=== PATIENT | female | born 1985 | race Caucasian/White ===

== ENCOUNTER 2019-04-24 10:43 | Emergency (ER) | payer SELFPAY ==
[~2019-04-24] VITALS: Ht 172.7 cm; Wt 79.4 kg
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
--- NOTE | 2019-04-24 11:49 | RAD ---
KNEE BILAT 3V History: Bilateral knee pain. History of fall. Technique: 3 views bilateral knees. Comparison: None. Findings: Normal alignment. No fracture. Moderate left knee joint effusion. No significant right knee joint effusion. There is the bilateral medial compartment degenerative changes, left greater than right. Impression: 1. No acute osseous abnormality. 2. Moderate left knee joint effusion. Electronically signed by: Joe Barlow DO (04/24/2019 11:46 AM) [facility]
[2019-04-24] MEDS ORDERED: IBUP800T19 PO (12:00)
[2019-04-24 12:10] VITALS: BP 121/76
== END 2019-04-24 12:14 | disposition home or self-care (01) ==
LOC: ER 10:43
DX: S80.02XA Contusion of left knee, initial encounter (principal); S80.01XA Contusion of right knee, initial encounter; M25.462 Effusion, left knee; M25.461 Effusion, right knee; J45.909 Unspecified asthma, uncomplicated; W51.XXXA Accidental striking against or bumped into by another person, initial encounter; Y93.89 Activity, other specified; Y92.89 Other specified places as the place of occurrence of the external cause; Y99.8 Other external cause status
CPT/HCPCS: 73562; 99284

== ENCOUNTER 2020-05-08 00:39 | Emergency (ER) | payer OTHER ==
[~2020-05-08] VITALS: Ht 172.7 cm; Wt 84.0 kg
[~2020-05-08 00:39] MED LIST: IBUP800T19 PO
--- NOTE | 2020-05-08 00:43 | PHYS DOC ---
Past History Past Medical History: Anxiety, Asthma, Bipolar, UTI, Other Past Surgical History: Other Alcohol Use: Occasionally Drug Use: Marijuana General Adult HPI: HPI: ". I am pretty sure .. I got a urinary tract infection.. I feel like when I had one before..."..." it hurts to pee and my urine is cloudy" Patient is a 35 year old female who presents with above hx and complaints of dysuria past couple days. Patient denies any history immunosuppression. No recent travel. No specific ill contacts. No worries about having an STD. Patient does not follow-up with primary care. Review of Systems: Review of Systems: Constitutional: Denies fever or chills Eyes: Denies change in visual acuity HENT: Denies nasal congestion or sore throat Respiratory: Denies cough or shortness of breath Cardiovascular: Denies chest pain or edema GI: Denies abdominal pain, nausea, vomiting, bloody stools or diarrhea : Complains of dysuria Musculoskeletal: Denies back pain or joint pain Integument: Denies rash Neurologic: Denies headache, focal weakness or sensory changes Endocrine: Denies polyuria or polydipsia Lymphatic: Denies swollen glands Psychiatric: Denies depression or anxiety Heart Score: Risk Factors: Risk Factors: DM, Current or recent (<one month) smoker, HTN, HLP, family history of CAD, obesity. Risk Scores: Score 0 - 3: 2.5% MACE over next 6 weeks - Discharge Home Score 4 - 6: 20.3% MACE over next 6 weeks - Admit for Clinical Observation Score 7 - 10: 72.7% MACE over next 6 weeks - Early Invasive Strategies Family History: Family History: Noncontributory Current Medications: Current Meds: See nursing for home meds Allergies: Allergies: Allergies Coded Allergies Type Severity Reaction Last Updated Verified No Known Drug Allergies 04/24/19 No Physical Exam: PE: Constitutional: Well developed, well nourished, mild distress, non-toxic appearance. [] HENT: Normocephalic, atraumatic, bilateral external ears normal, oropharynx moist, no oral exudates, nose normal. [] Eyes: PERRLA, EOMI, conjunctiva normal, no discharge. Glasses Neck: Normal range of motion, no tenderness, supple, no stridor. [] Cardiovascular:Heart rate regular rhythm, no murmur [] Lungs & Thorax: Bilateral breath sounds clear to auscultation [] Abdomen: Bowel sounds normal, soft, no tenderness, no masses, no pulsatile masses. [] Skin: Warm, dry, no erythema, no rash. [] Back: No tenderness, no CVA tenderness. [] Extremities: No tenderness, no cyanosis, no clubbing, ROM intact, no edema. [] Neurologic: Alert and oriented X 3, normal motor function, normal sensory function, no focal deficits noted. [] Psychologic: Affect normal, judgement normal, mood normal. [] EKG: EKG: [] Radiology/Procedures: Radiology/Procedures: [] Course & Med Decision Making: Course & Med Decision Making Pertinent Labs and Imaging studies reviewed. (See chart for details) Patient push fruit juices. Patient expect her urine turn red from Pyridium given tonight. Take Bactrim DS twice a day. Follow-up primary care. Return if any concerns. Follow-up cultures. Impression: 1. Urinary tract infection [] Dragon Disclaimer: Dragon Disclaimer: This electronic medical record was generated, in whole or in part, using a voice recognition dictation system. Departure Departure: Disposition: HOME/RESIDENCE PRIOR TO ADM Condition: STABLE Referrals: PCP,YEIMY (PCP) Scripts Sulfamethoxazole/Trimethoprim (BACTRIM DS TABLET) 1 Each Tablet 1 TAB PO BID for uti for 10 Days, #20 TAB 0 Refills Prov: JOSE ADHIKARI MD 05/08/20 Justification of Admission: Justification of Admission: Justification of Admission Dx: N/A Dragon Disclaimer This chart was dictated in whole or in part using Voice Recognition software in a busy, high-work load, and often noisy Emergency Department environment. It may contain unintended and wholly unrecognized errors or omissions. JOSE ADHIKARI MD May 08, 2020 00:43
[2020-05-08 00:50] VITALS: BP 107/56
[2020-05-08 01:33] LABS: BARBITURATES NEG (NEG); BENZODIAZEPINES NEG (NEG); CANNABINOIDS POS (NEG); COCAINE NEG (NEG); METHADONE NEG (NEG); OPIATES NEG (NEG); PHENCYCLIDINE NEG (NEG)
[2020-05-08 01:35] LABS: CLARITY,URINE HAZY; COLOR,URINE YELLOW
[2020-05-08 01:36] LABS: BACTERIA,URINE FEW /HPF (0-FEW); BILIRUBIN,URINE NEG (NEG); GLUCOSE,URINE NEG (NEG); NITRITE,URINE NEG (NEG); RBC,URINE 0 /HPF (0-2); SQUAMOUS EPITHELIAL CELL,UR OCC /LPF; WBC,URINE >40 /HPF (0-4)
[2020-05-08 01:44] LABS: AMPHETAMINE/METHAMPHETAMINE NEG (NEG)
[2020-05-08] MEDS ORDERED: SULF1TAB24 PO (01:47)
[2020-05-08] MEDS ORDERED: SMZ/TMP 800/160MG TABLET. PO ONE (02:00)
[2020-05-08] MEDS ORDERED: PHENAZOPYRIDINE 200 MG TABLET. PO ONE (02:00)
== END 2020-05-08 02:08 | disposition home or self-care (01) ==
LOC: ER 00:39
DX: N39.0 Urinary tract infection, site not specified (principal); F41.9 Anxiety disorder, unspecified; J45.909 Unspecified asthma, uncomplicated; F31.9 Bipolar disorder, unspecified; Z87.440 Personal history of urinary (tract) infections
CPT/HCPCS: 36415; 80307; 81001; 87086; 99283

== ENCOUNTER 2020-11-06 17:18 | Emergency (ER) | payer OTHER ==
[~2020-11-06] VITALS: Ht 172.7 cm; Wt 84.0 kg
[~2020-11-06 17:18] MED LIST changes: +SULF1TAB24 PO
[2020-11-06 17:27] VITALS: BP 132/97
--- NOTE | 2020-11-06 18:18 | RAD ---
Right knee 3 views, right hip 2 views with one view pelvis, right ankle 3 views. HISTORY: Fell downstairs, pain 3 views were taken of the right ankle. There is not evidence of an acute fracture or osseous abnormal ity. 3 views were taken of the right knee. There is not evidence of an acute fracture. There is a joint ef fusion. There is no acute osseous abnormality. Right hip AP view was taken of the pelvis. Pelvis is intact without osseous abnormality. Left hip appears unrem arkable. AP and lateral views of the right hip show no fracture or osseous abnormality. IMPRESSION: 1. No acute abnormality in the pelvis. 2. Negative right hip. 3. Joint effusion right knee. If Symptoms persist MRI could be of benefit. 4. No acute fracture right knee. 5. Negative right ankle. Electronically signed by: Archie Hamilton MD (11/06/2020 6:16 PM) [facility]
--- NOTE | 2020-11-06 18:19 | RAD ---
Right shoulder 3 views. HISTORY: Pain, fell downstairs 3 views were taken of the right shoulder. There is not evidence of an acute fracture or dislocation o r osseous abnormality. IMPRESSION: 1. No fracture or dislocation noted in the right shoulder. Electronically signed by: Archie Hamilton MD (11/06/2020 6:16 PM) [facility]
[2020-11-06] MEDS ORDERED: CYCL-331 PO (18:31)
--- NOTE | 2020-11-06 18:32 | PHYS DOC ---
Past History Past Medical History: Asthma, Bipolar, Kidney Infection, UTI, Other Additional Past Medical Histor: "bad teeth" Past Surgical History: Other Additional Past Surgical Histo: abiodun tubal occlusion surgery-9yrs ago; wisdom teeth extracted Alcohol Use: Rarely Drug Use: Marijuana Adult General Chief Complaint Chief Complaint: MECHANICAL FALL HPI HPI Patient is a 35-year-old female who presents after falling down a few stairs yesterday morning. Endorses right ankle/knee/hip and shoulder pain about 5 out of 10, dull and achy in nature with no radiation. Denies any other injuries. States she is able to ambulate but it causes her some discomfort. Patient stat es she is worried because she works at [employer] and lifts heavy things quite often. States she took some Aleve yesterday with minimal relief. Review of Systems Review of Systems Review of systems otherwise unremarkable except noted in HPI Allergies Allergies Allergies Coded Allergies Type Severity Reaction Last Updated Verified mold Allergy Intermediate 05/08/20 Yes Uncoded Allergies Type Severity Reaction Last Updated Verified DUST Allergy Mild 05/08/20 TOBASCO SAUCE Adverse Reaction Intermediate 05/08/20 Physical Exam Physical Exam Constitutional: Well developed, well nourished, no acute distress, non-toxic appearance. [] HENT: Normocephalic, atraumatic, bilateral external ears normal, oropharynx moist, no oral exudates, nose normal. [] Eyes: conjunctiva normal, no discharge. [] Neck: Normal range of motion, no tenderness, supple, no stridor. [] Cardiovascular:Heart rate regular rhythm, no murmur [] Lungs & Thorax: Bilateral breath sounds clear to auscultation [] Abdomen: soft, no tenderness, no masses, no pulsatile masses. [] Skin: Warm, dry, no erythema, no rash. [] Back: No tenderness, Extremities: Patient has mild tenderness about the right ankle/knee/shoulder with no obvious deformities, swelling. Neurovascular exam intact Neurologic: Alert and oriented X 3, normal motor function, normal sensory function, no focal deficits noted. [] Psychologic: Affect normal, judgement normal, mood normal. [] Current Patient Data Vital Signs Vital Signs Date Time Temp Pulse Resp B/P (MAP) Pulse Ox O2 Delivery O2 Flow Rate FiO2 11/06/20 17:27 97.9 80 16 132/97 (109) 98 Room Air EKG EKG [] Radiology/Procedures Radiology/Procedures [] Right knee 3 views, right hip 2 views with one view pelvis, right ankle 3 views. HISTORY: Fell downstairs, pain 3 views were taken of the right ankle. There is not evidence of an acute fracture or osseous abnormality. 3 views were taken of the right knee. There is not evidence of an acute fracture. There is a joint effusion. There is no acute osseous abnormality. Right hip AP view was taken of the pelvis. Pelvis is intact without osseous abnormality. Left hip appears unremarkable. AP and lateral views of the right hip show no fracture or osseous abnormality. IMPRESSION: 1. No acute abnormality in the pelvis. 2. Negative right hip. 3. Joint effusion right knee. If Symptoms persist MRI could be of benefit. 4. No acute fracture right knee. 5. Negative right ankle. Electronically signed by: Archie Hamilton MD (11/06/2020 6:16 PM) [facility] Right shoulder 3 views. HISTORY: Pain, fell downstairs 3 views were taken of the right shoulder. There is not evidence of an acute fracture or dislocation or osseous abnormality. IMPRESSION: 1. No fracture or dislocation noted in the right shoulder. Electronically signed by: Archie Hamilton MD (11/06/2020 6:16 PM) [facility] Heart Score C/O Chest Pain: No Risk Factors: Risk Factors: DM, Current or recent (<one month) smoker, HTN, HLP, family history of CAD, obesity. Risk Scores: Risk Factors: DM, Current or recent (<one month) smoker, HTN, HLP, family history of CAD, obesity. Course & Med Decision Making Course & Med Decision Making Patient is a 35-year-old female who presents after falling down the stairs with musculoskeletal complaints Vital signs not concerning. Physical exam noted above. Given Tylenol, ibuprofe n and cyclobenzaprine. Imaging not concerning for acute osseous abnormality and shows a small amount of fluid in the knee. Advised on pain control at home. Given work note until she can follow-up with primary care. Advised to call primary care physician first thing in the morning to set up a follow-up appointment. Gave strict return precautions to the ED. Patient grateful, verbalized understanding and agreed with plan of discharge. [] Dragon Disclaimer Dragon Disclaimer This electronic medical record was generated, in whole or in part, using a voice recognition dictation system. Departure Departure: Impression: Primary Impression: Ankle pain Additional Impressions: Knee pain Hip pain Shoulder pain Disposition: 01 DC HOME SELF CARE/HOMELESS Condition: GOOD Referrals: PCP,NO (PCP) STEVE ALSTON MD Patient Instructions: RICE - Routine Care for Injuries, [id number] Additional Instructions: Please read all the attached information. Please begin a Tylenol, ibuprofen and muscle relaxer regimen at home as needed for pain control. You are given a work note for decreased activity at work until you contact your primary care physician, follow-up and get cleared by them for full work duty. Please come back to the emergency department with new or concerning symptoms as discussed. Scripts Cyclobenzaprine Hcl (CYCLOBENZAPRINE HCL) 10 Mg Tablet 1 TAB PO BID PRN for MUSCLE SPASMS for 7 Days, #14 TAB Prov: RHINA ROSA MD 11/06/20 Problem Qualifiers RHINA ROSA MD Nov 06, 2020 18:31
[2020-11-06] MEDS ORDERED: CYCLOBENZAPRINE 10 MG TABLET. PO ONE (18:45)
== END 2020-11-06 18:38 | disposition home or self-care (01) ==
LOC: ER 17:18
DX: M25.551 Pain in right hip (principal); M25.511 Pain in right shoulder; M25.571 Pain in right ankle and joints of right foot; M25.561 Pain in right knee; J45.909 Unspecified asthma, uncomplicated; F32.9 Major depressive disorder, single episode, unspecified; Z87.440 Personal history of urinary (tract) infections; Z88.8 Allergy status to other drugs, medicaments and biological substances; W10.8XXA Fall (on) (from) other stairs and steps, initial encounter; Y93.89 Activity, other specified; Y92.89 Other specified places as the place of occurrence of the external cause; Y99.8 Other external cause status
CPT/HCPCS: 73030; 73502; 73562; 73610; 99284